=== PATIENT | male | born 1980 | race Caucasian/White ===

== ENCOUNTER 2018-08-06 05:19 | Emergency (ER) | payer OTHER ==
--- NOTE | 2018-08-06 05:42 | PDOC ---
Attending Attestation - Resident Resident Name: Omid Dove - ED Attending Attestation I have performed the following: I have examined & evaluated the patient, The case was reviewed & discussed with the resident, I agree w/resident's findings & plan - HPI HPI: 08/06/18 07:20 Pt comes with fever and weakness and an episode of diarrhea. No cough. He wants to make sure that he has no influenza. Pt is flu negative. Pt also states that he has no sick contacts at work or at home. - Physicial Exam PE: 08/06/18 07:21 Agree with resident exam. Pt has fever. Pt has clear lungs. Abd soft NT ND. No rashes or shingles. HEENT normal. No flank pain - Medical Decision Making 08/06/18 07:22 Pt will be igned out to the day team. Pt is flu negative; UA normal; CBC normal. WBC slight elevation. 08/06/18 07:23 Once pt defervesces, he is stable for d/c home. COMP normal also Heart Score/ECG Review - ECG Intrepretation Rhythm: Regular Rhythm - [place]: Normal - P and MT Atrial Enlargement: Left Prominent R with upright T in V1 (true posterior LA): No Delta Wave(s) Present: No WPW: No - QRS Poor R Wave Progression: No Q Wave Present: No - ST and T Early Repolarization: No Non Specific ST-T Wave changes: No Flattened T Waves: No Prolonged Q-T Interval: No - ECG Impressions Normal ECG: Yes Non-specific ST Elevation: No Ischemic Changes: No Bradycardia: No Torsades peggy Pointes: No WPW: No
[2018-08-06] MEDS ORDERED: ACETAMINOPHEN 1000 MG/100 ML VIAL (NON FORMULARY) IVPB ONE (05:43)
[2018-08-06] MEDS ORDERED: SODIUM CHLORIDE 1,000 ML IV STA (05:43)
[2018-08-06 05:46] VITALS: BMI 42.5
[2018-08-06] MEDS ORDERED: ACETAMINOPHEN INJECTION 100 ML IVPB ONE (05:56)
[2018-08-06 06:35] LABS: BASO % 0.2 % (0-2.0); EOS % 0.3 % (0-4.5); HEMATOCRIT 42.4 % (35.4-49); HEMOGLOBIN 14.7 GM/dL (11.7-16.9); LYMPH % 4.6 % (8-40); MCHC 34.6 g/dl (32.0-35.9); MEAN CELL VOLUME 92.5 fl (80-96); MEAN PLT VOLUME 8.4 fl (7.5-11.1); MONO % 4.2 % (3.8-10.2); NEUT % 90.7 % (42.8-82.8); PLATELET COUNT 333 K/MM3 (134-434); RBC 4.58 M/mm3 (4.00-5.60); RDW 13.9 % (11.9-15.9); WHITE BLOOD COUNT 13.4 K/mm3 (4.0-10.0)
--- NOTE | 2018-08-06 06:37 | PDOC ---
History of Present Illness - General Chief Complaint: Weakness Stated Complaint: WEAKNESS, SOB Time Seen by Provider: 08/06/18 05:42 History Source: Patient Exam Limitations: No Limitations - History of Present Illness Initial Comments: 08/06/18 06:31 Patient is a 38M with history of obesity here today complaining of epigastric abdominal pain, shortness of breath, fevers, chills, and chest pain that started at 7pm yesterday. Patient denies sick contacts, states that he already had the flu this year. States that his abdominal pain improved with pepto bismol. He states that his chest pain is located substernally and both his cp and sob are worsened with exertion. Denies history of blood clots, leg swelling. Past History - Past Medical History Allergies/Adverse Reactions: Allergies Allergy/AdvReac Type Severity Reaction Status Date / Time No Known Allergies Allergy Verified 08/06/18 05:45 Home Medications: Ambulatory Orders NK [No Known Home Medication] 08/06/18 - Suicide/Smoking/Psychosocial Hx Smoking History: Never smoked Have you smoked in the past 12 months: No Information on smoking cessation initiated: No Hx Alcohol Use: No Drug/Substance Use Hx: No Review of Systems - Review of Systems Comments:: 08/06/18 06:34 GENERAL/CONSTITUTIONAL: +fever +chills. No weakness. HEAD, EYES, EARS, NOSE AND THROAT: No change in vision. No sore throat. CARDIOVASCULAR: +chest pain +shortness of breath RESPIRATORY: +cough, no wheezing, or hemoptysis. GASTROINTESTINAL: No nausea, vomiting, diarrhea or constipation. GENITOURINARY: No dysuria, frequency, or change in urination. MUSCULOSKELETAL: +bodyaches. No neck or back pain. SKIN: No rash NEUROLOGIC: No headache, vertigo, loss of consciousness, or change in strength/ sensation. ENDOCRINE: No increased thirst. No abnormal weight change HEMATOLOGIC/LYMPHATIC: No anemia, easy bleeding, or history of blood clots. ALLERGIC/IMMUNOLOGIC: No hives or skin allergy. *Physical Exam - Vital Signs Last Vital Signs Temp Pulse Resp BP Pulse Ox 101.0 F H 106 H 20 130/81 97 08/06/18 05:45 08/06/18 05:45 08/06/18 05:45 08/06/18 05:45 08/06/18 05:45 - Physical Exam Comments: 08/06/18 06:35 GENERAL: Awake, alert, and fully oriented, in no acute distress HEAD: No signs of trauma, normocephalic, atraumatic EYES: PERRLA, EOMI, sclera anicteric, conjunctiva clear ENT: Auricles normal inspection, hearing grossly normal, nares patent, oropharynx clear without exudates. Moist mucosa NECK: Normal ROM, supple, no lymphadenopathy, JVD, or masses LUNGS: No distress, speaks full sentences, clear to auscultation bilaterally HEART: Regular rate and rhythm, normal S1 and S2, no murmurs, rubs or gallops, peripheral pulses normal and equal bilaterally. ABDOMEN: Soft, nontender, normoactive bowel sounds. No guarding, no rebound. No masses EXTREMITIES: Normal inspection, Normal range of motion, no edema. No clubbing or cyanosis. NEUROLOGICAL: Cranial nerves II through XII grossly intact. Normal speech, normal gait, no focal sensorimotor deficits SKIN: Warm, Dry, normal turgor, no rashes or lesions noted. Moderate Sedation - Procedure Monitoring Vital Signs: Procedure Monitoring Vital Signs Temperature 101.0 F H 08/06/18 05:45 Pulse Rate 106 H 08/06/18 05:45 Respiratory Rate 20 08/06/18 05:45 Blood Pressure 130/81 08/06/18 05:45 O2 Sat by Pulse Oximetry (%) 97 08/06/18 05:45 ED Treatment Course - LABORATORY CBC & Chemistry Diagram: 08/06/18 05:50 08/06/18 05:50 - Medications Given in the ED: ED Medications Discontinued Medications Generic Name Dose Route Start Last Admin Trade Name Kinjal PRN Reason Stop Dose Admin Acetaminophen 1,000 mg 08/06/18 05:43 08/06/18 05:56 Ofirmev Injection - IVPB 08/06/18 05:44 1,000 mg ONCE ONE Administration Medical Decision Making - Medical Decision Making 08/06/18 06:35 Patient is 38M here today with chest pain, fever. Vital signs notable for tachycardia and fever. Not ill appearing. DDx includes, but is not limited to: pneumonia, bronchitis, acs. Will evaluate with cbc, cmp, trop, ekg, cxr, ua/uc. Will treat with tylenol, fluids. 08/06/18 07:13 CBC shows leukocytosis. CMP pending. CXR shows no obvious infiltrate. Pending re -eval, cmp/trop, EKG. Signed out to Dr Hernandez. *DC/Admit/Observation/Transfer Diagnosis at time of Disposition: Fever, Chest pain - Discharge Dispostion Condition at time of disposition: Stable - Referrals Referrals: ON STAFF,NOT [Primary Care Provider] - - Patient Instructions - Post Discharge Activity
[2018-08-06 06:41] LABS: URINE APPEARANCE CLEAR; URINE BILIRUBIN NEGATIVE (<2.0 mg/dL); URINE COLOR YELLOW; URINE GLUCOSE (UA) NEGATIVE (NEGATIVE); URINE KETONE NEGATIVE (NEGATIVE); URINE LEUK ESTERASE NEGATIVE (NEGATIVE); URINE NITRITE NEGATIVE (NEGATIVE); URINE PROTEIN NEGATIVE (NEGATIVE); URINE UROBILINOGEN NEGATIVE mg/dL (0.2-1.0)
[2018-08-06 06:50] LABS: INR 1.07 (0.83-1.09); PROTHROMBIN TIME (PATIENT) 12.6 SEC (9.7-13.0)
[2018-08-06 07:08] LABS: ALBUMIN 3.9 g/dl (3.4-5.0); ALK PHOS 74 U/L (45-117); ANION GAP 9 MMOL/L (8-16); BILIRUBIN,TOTAL 0.6 mg/dL (0.2-1); BLOOD UREA NITROGEN 15 mg/dL (7-18); CALCIUM 8.6 mg/dL (8.5-10.1); CHLORIDE 103 mmol/L (98-107); CO2 24 mmol/L (21-32); GLUCOSE,RANDOM 84 mg/dL (74-106); MAGNESIUM 1.8 mg/dL (1.8-2.4); POTASSIUM 4.1 mmol/L (3.5-5.1); SGOT/AST 20 U/L (15-37); SGPT/ALT 30 U/L (13-61); SODIUM 137 mmol/L (136-145); TOT PROT 7.7 g/dl (6.4-8.2)
[2018-08-06] MEDS ORDERED: IBUPROFEN 600 MG TABLET (FP) PO ONE ×2 (07:19→08:13)
--- NOTE | 2018-08-06 07:46 | PDOC ---
*Physical Exam - Vital Signs Last Vital Signs Temp Pulse Resp BP Pulse Ox 101.0 F H 106 H 20 130/81 97 08/06/18 05:45 08/06/18 05:45 08/06/18 05:45 08/06/18 05:45 08/06/18 05:45 - Physical Exam Comments: 08/06/18 07:58 GEN: A&O, NO acute distress HEENT: PERRL, moist mucus membranes, no pharyngeal or nasal exudate or erythema NECK: supple, no lymphadenopathy HEART: RRR no murmurs, no longer tachycardic LUNGS: CTA b/l, no wheezes or rhonchi ABDOMEN: Soft, nontender ESTREMITIES: No peripheral edema or calf tenderness ED Treatment Course - LABORATORY CBC & Chemistry Diagram: 08/06/18 05:50 08/06/18 05:50 - ADDITIONAL ORDERS Additional order review: Laboratory Results 08/06/18 08/06/18 05:50 05:50 PT with INR 12.60 INR 1.07 Urine Color Yellow Urine Appearance Clear Urine pH 5.0 Ur Specific [place] 1.023 Urine Protein Negative Urine Glucose (UA) Negative Urine Ketones Negative Urine Blood Negative Urine Nitrite Negative Urine Bilirubin Negative Urine Urobilinogen Negative Ur Leukocyte Esterase Negative 08/06/18 05:50 RBC 4.58 MCV 92.5 MCHC 34.6 RDW 13.9 MPV 8.4 Neutrophils % 90.7 H Lymphocytes % 4.6 L Monocytes % 4.2 Eosinophils % 0.3 Basophils % 0.2 - Medications Given in the ED: ED Medications Discontinued Medications Generic Name Dose Route Start Last Admin Trade Name Robertq PRN Reason Stop Dose Admin Acetaminophen 1,000 mg 08/06/18 05:43 08/06/18 05:56 Ofirmev Injection - IVPB 08/06/18 05:44 1,000 mg ONCE ONE Administration Sodium Chloride 1,000 mls @ 1,000 mls/hr 08/06/18 05:43 08/06/18 05:55 Normal Saline - IV 08/06/18 06:42 1,000 mls/hr ASDIR STA Administration Medical Decision Making - Medical Decision Making 08/06/18 07:59 Pt received from night resident. WBC count noted with mild elevation, however patient states he is feeling much better than on arrival. Temp down to 99.4. CXR noted without any infiltrate. Likely viral URI. Pt states he feels well enough to go home. Will encourage to drink plenty of fluids, and continue tylenol as needed for any myalgias/fever. *DC/Admit/Observation/Transfer Diagnosis at time of Disposition: Fever, Chest pain - Discharge Dispostion Disposition: HOME Condition at time of disposition: Stable Decision to Admit order: No - Referrals Referrals: ON STAFF,NOT [Primary Care Provider] - - Patient Instructions Printed Discharge Instructions: DI for Viral Upper Respiratory Infection -- Adult Additional Instructions: You were seen in the Emergency room with complaint of cough, fever, and some chest pain. All of your lab work resulted without any concerning findings and your EKG was not concerning for any heart attack. A chest Xray was done which did not reveal any pneumonia. As you are now feeling better, you are safe to go home at this time. You should follow up with your doctor within one week. You should continue to take all of your home medications as they are prescribed to you by your doctor. You should be seen by your doctor or return to the emergency room if your symptoms worsen or you have any other concerning symptoms. - Post Discharge Activity
[2018-08-06 08:24] VITALS: BP 118/62; PULSE 89; TEMP 99.4
--- NOTE | 2018-08-06 12:55 | EKG ---
Test Reason : Blood Pressure : / mmHG Vent. Rate : 089 BPM Atrial Rate : 089 BPM P-R Int : 148 ms QRS Dur : 086 ms QT Int : 368 ms P-R-T Axes : 051 -09 025 degrees QTc Int : 447 ms NORMAL SINUS RHYTHM POSSIBLE LEFT ATRIAL ENLARGEMENT WHEN COMPARED WITH ECG OF 25-MAR-2003 18:27, QT HAS LENGTHENED Confirmed by GAIL GIRON MD ([id number]) on 08/06/2018 12:54:50 PM Referred By: Confirmed By:GAIL GIRON MD
== END 2018-08-06 08:24 | disposition home or self-care (01) ==
LOC: JER 05:19
PROC: 3E033NZ Introduction of Analgesics, Hypnotics, Sedatives into Peripheral Vein, Percutaneous Approach (ICD-10-PCS; principal; 2018-08-06)
DX: J06.9 Acute upper respiratory infection, unspecified (principal); R07.89 Other chest pain
CPT/HCPCS: 36415; 71046-TC-FY; 80053; 81003; 82550; 82553; 83735; 84484; 85025; 85610; 87804; 93005; 93010; 96374; 99281-25; J0131; J7030